=== PATIENT | male | born 1965 | race Caucasian/White ===

== ENCOUNTER 2020-08-06 23:23 | Emergency (ER) | payer SELFPAY ==
[~2020-08-06] VITALS: Ht 185.4 cm; Wt 62.6 kg
[2020-08-06 23:25] VITALS: BP 118/52
--- NOTE | 2020-08-06 23:46 | NUR ---
Patient given written and verbal discharge instructions. Patient verbalizes understanding of instructions. Patient is ambulatory with steady gait. Refuses offer of penitentiary placement. Patient given list of available shelters in surrounding area. pt was provided w. warm clothing, snacks and bus tap card.
== END 2020-08-06 23:46 | disposition home or self-care (01) ==
LOC: ER 23:25
DX: Z02.89 Encounter for other administrative examinations (principal); Z59.0 Homelessness

== ENCOUNTER 2020-08-08 08:54 | Emergency (ER) | payer SELFPAY ==
[~2020-08-08] VITALS: Ht 185.4 cm; Wt 64.0 kg
[2020-08-08] MEDS ORDERED: LORAZEPAM 1 MG TABLET ONE (09:25)
[2020-08-08] MEDS ORDERED: OLANZAPINE 5 MG TABLET ONE (09:26)
[2020-08-08] MEDS ORDERED: OLANZAPINE 5 MG TABLET PO ONE (09:30)
[2020-08-08] MEDS ORDERED: LORAZEPAM 1 MG TABLET PO ONE (09:30)
--- NOTE | 2020-08-08 10:00 | NUR ---
Patient came in to the er c/o being cold. On room air, breathing evenly and unlabored. Kept comfortable, will continue to monitor accordingly.
--- NOTE | 2020-08-08 10:07 | NUR ---
urine collected and sent to lab
[2020-08-08 10:12] LABS: BASOPHILS % (AUTO) 0.4 % (0.0-2.0); EOSINOPHILS % (AUTO) 0.5 % (0.0-6.0); HEMATOCRIT 37 % (39-51); HEMOGLOBIN 12.2 g/dL (13.5-17.5); LYMPHOCYTES # (AUTO) 0.8 /CMM (0.8-4.8); LYMPHOCYTES % (AUTO) 8.8 % (20.0-44.0); MEAN CORPUSCULAR HGB CONC 33 g/dl (31.0-36.0); MEAN CORPUSCULAR VOLUME 90 fL (80-96); MONOCYTES % (AUTO) 11.3 % (2.0-12.0); NEUTROPHILS # (AUTO) 7.3 /CMM (1.8-8.9); PLATELET COUNT (AUTO) 500 /CMM (150-450); WHITE BLOOD COUNT (AUTO) 9.2 K/uL (4.3-11.0)
[2020-08-08 10:21] LABS: BILIRUBIN,URINE NEGATIVE (NEGATIVE); COLOR,URINE YELLOW (YELLOW); LEUKOCYTE ESTERASE ,URINE NEGATIVE (NEGATIVE); NITRITE, URINE NEGATIVE (NEGATIVE); PROTEIN,URINE NEGATIVE (NEGATIVE); UGLUCOSE NEGATIVE (NEGATIVE); UROBILINOGEN,URINE >=8.0 EU/dL (0.2)
[2020-08-08 10:21] LABS: CALCIUM, SERUM 8.7 mg/dL (8.5-10.1); CARBON DIOXIDE 28 mmol/L (21-32); CHLORIDE 103 mmol/L (98-107); CREATININE 0.8 mg/dL (0.6-1.3); GLUCOSE 89 mg/dL (74-106); POTASSIUM 4.6 mmol/L (3.5-5.1); SODIUM SERUM 140 mmol/L (136-145); UREA NITROGEN, BLOOD 22 mg/dL (7-18)
[2020-08-08 10:28] LABS: ALANINE AMINOTRANSFERASE 39 U/L (12-78); ALBUMIN 2.4 g/dL (3.4-5.0); ALCOHOL, BLOOD < 3 mg/dL (0-0); ALKALINE PHOSPHATASE 109 U/L (46-116); ASPARTATE AMINOTRANSFERASE 35 U/L (15-37); BILIRUBIN,TOTAL 0.4 mg/dL (0.2-1.0); TOTAL PROTEIN, SERUM 7.1 g/dL (6.4-8.2)
[2020-08-08 10:29] LABS: ACETAMINOPHEN 0 ug/ml (10-30)
[2020-08-08 10:37] LABS: BILIRUBIN,DIRECT 0.1 mg/dL (0.0-0.2)
[2020-08-08 10:44] LABS: BACTERIA,URINE Rare /HPF (None Seen); RBC,URINE 0-3 /HPF (0-2); WBC,URINE 0-2 /HPF (0-3)
[2020-08-08 10:45] LABS: SQUAMOUS EPITHELIAL CELL,UR Few /HPF (None Seen)
--- NOTE | 2020-08-08 16:17 | NUR ---
Entry Level Account Executive consult: SW consult request by ER staff for a 55 year old homeless male. SW met with pt at ER bed 15 to assessment. SW is unable to interview due to pt is sleeping. Pt is noncompliant and did not wake up after multiple attempts to wake the pt. Per EMR mediation report , pt is medicated with Ativan (2mg) and Zyprexa (5mg). Pt toxicology is positive for (ETOH and salicylates). SOPHY spoke to RN (Silvestre) to contact social work specialist once the patient is ready to do an assessment. Plan: SW will follow up with the patient is agreeable to participate in interview and assessment
--- NOTE | 2020-08-08 19:48 | NUR ---
PT RESTING IN BED COMFORTABLY. VSS. PT PROVIDED WITH WATER.
--- NOTE | 2020-08-09 01:20 | NUR ---
PT PROVIDED WITH MORE BLANKETS, VSS.
--- NOTE | 2020-08-09 05:24 | NUR ---
PT PROVIDED WITH FOOD, VSS.
--- NOTE | 2020-08-09 07:41 | NUR ---
ASSESSED PT ON BED ASLEEP EASILY AROUSABLE, NOT IN RESPIRATORY DISTRESS, V/S STABLE, KEPT RESTED AND COMFORTABLE. WILL CONTINUE TO MONITOR.
--- NOTE | 2020-08-09 10:45 | NUR ---
SW AT BEDSIDE FOR EVAL.
--- NOTE | 2020-08-09 11:15 | NUR ---
SS consult: SS Consult requested for psychosis.The pt. is a 55 year old male experiencing homelessness. Per lab report, pt. tested positive for Amphetamine & was medicated with Zyprexa & Ativan due to Psych Hx. SOPHY met with pt. at bedside. Pt. appears disheveled, is malodorous & agitated. Pt. was non-cooperative with interview. Pt. able to make needs known. Pt. stated I only want a food tray. I dont want to speak to you. Pt. became increasingly agitated. SOPHY informed pt. SW to help with discharge planning. SW offered pt. homeless resources and pt. refused nursing home placement. Pt. refused to sign homeless waiver.
--- NOTE | 2020-08-09 11:55 | NUR ---
Patient given written and verbal discharge instructions. Patient verbalizes understanding of instructions. Patient is ambulatory with steady gait. Refuses offer of nursing home placement. Patient given list of available shelters in surrounding area.
[2020-08-09 11:56] VITALS: BP 120/73
== END 2020-08-09 11:57 | disposition home or self-care (01) ==
LOC: ER 08:56
DX: F29 Unspecified psychosis not due to a substance or known physiological condition (principal); R41.0 Disorientation, unspecified; F15.10 Other stimulant abuse, uncomplicated; Z59.0 Homelessness
CPT/HCPCS: 36415; 80048-TC; 80076-TC; 81001; 85025-TC; G0480

== ENCOUNTER 2020-08-24 10:16 | Emergency (ER) | payer SELFPAY ==
[~2020-08-24] VITALS: Ht 167.6 cm; Wt 59.4 kg
--- NOTE | 2020-08-24 10:20 | NUR ---
[address] for medical and psych eval. per report, pd was first on scene for possible placement. Patient a/ox4, breathing even and unlabored, no sob noted.
--- NOTE | 2020-08-24 10:45 | NUR ---
Initial Discharge Plan: SOPHY spoke to [facility] Field Based Outreach Contract Implementation Analyst, Avery Glover [[address]. [facility] [address]; [phone]]. Per Avery, he should be contacted when the pt. is medically cleared so he can place the pt. on recuperative care. Noted. SOPHY will inform charge nurse, Bradley.
--- NOTE | 2020-08-24 10:46 | NUR ---
REFUSED BLOOD DRAW AND TO PROVIDE URINE.
--- NOTE | 2020-08-24 10:48 | NUR ---
DR. GIFFORD MADE AWARE, OK TO HOLD HALDOL FOR NOW SINCE PATIENT IS COOPERATIVE AT THIS TIME.
--- NOTE | 2020-08-24 10:51 | NUR ---
PERFECT BIND MACHINE OPERATOR JUANY CALLED FOR CONSULT.
[2020-08-24] MEDS ORDERED: HALOPERIDOL LACTATE INJ 5 MG/ML VIAL IM ONE ×2 (11:00→16:30)
--- NOTE | 2020-08-24 11:40 | NUR ---
X RAY DEVELOPING MACHINE OPERATOR AT BEDSIDE FOR EVAL.
--- NOTE | 2020-08-24 12:02 | NUR ---
SOPHY attempted to assess this pt. at bedside. Yasmine pt. is not rousable to verbal cues. SW will attempt to assess at a later time. SOPHY informed MD chu pt. to be D/C to [facility] when medically cleared.
--- NOTE | 2020-08-24 12:04 | NUR ---
"Resources: SW placed the following homeless resources in pt.'s discharge packet in chart: Substance Abuse resources provided included: [facility] Substance Abuse Self-Helpline ([facility]) ; CRI -HELP [address] [facility] [place] [address] ; [facility] Treatment [place] [address] [facility] [address] ; [facility] [address] [facility] [id number] ; [facility] [address] [facility] [address] ; [facility] 9120 Chal[address] Alfar[address] [facility] [address] ; [facility] 909 [facility] [phone] ; [facility] Substance Abuse Helpline([facility])-[facility] ; [facility] ; [facility] [place]; [facility] [place]; Cri-Help [place]; I-ADARP Inter Agency Drug Abuse Recovery Chalino Alfaro; [facility]; [facility]; [facility] [place]; [facility] [place]; Alcoholics Anonymous -SFV; Az-Wuob-Atzofzr ; Marijuana Anonymous -SFV; Narcotics Anonymous www.na.org; Year-round shelters: [facility] [address] [place] [address] ; [facility] [address] [place] [address]; [facility] Nmolngy5609 [facility]. [facility] [address] Winter Shelters: Foreign Bran [place] Provider: [facility] [place] Address: [address], [address] # of Beds: 47 Population Served: [facility] 6 | [facility] Taina Reyes [place] Provider: Home at Last Address: [address], [address] # of Beds: 66 Population Served: [facility] [place] Provider: First to Serve Address: [address] [facility], [address] # of Beds: 56 Population Served: [place] Carloz [place] Provider: /[facility]. [facility] Address: [address] [facility], [address] # of Beds: 49 Population Served: [facility] 8 | [facility] Provider: First to Serve Address: 35[address] [facility], [address] # of Beds: 37 Population Served: [place] Hygiene: [place] [facility]: [address] [facility] ; [place] [facility] [address] [facility] ; [facility] 6900 [facility] . Food Resources: [place] [facility] at [facility]- 5700 [facility]; Meet Each Need with Dignity ([facility]) [address] [facility]; [facility] Food Pantry 4386 [facility]; [facility] [address] 5850 [facility]. Mental Health resources provided: [facility] [address] [place] [address] ; [facility] [address] [facility] [address], [place] [address] ; [facility] [address] [place] [address] ; [place] [address] Healthcare Clinics: [facility] [address] [facility], [address] [place]. [place] ; [facility] [address] [facility] [address] [place] [address]; [facility] [address] [place] [address] [phone]"
[2020-08-24 13:13] LABS: BASOPHILS # (AUTO) 0.1 /CMM (0.0-0.2); BASOPHILS % (AUTO) 0.8 % (0.0-2.0); EOSINOPHILS % (AUTO) 0.9 % (0.0-6.0); HEMATOCRIT 34 % (39-51); HEMOGLOBIN 11.2 g/dL (13.5-17.5); LYMPHOCYTES # (AUTO) 1.2 /CMM (0.8-4.8); LYMPHOCYTES % (AUTO) 14.5 % (20.0-44.0); MEAN CORPUSCULAR HGB CONC 33 g/dl (31.0-36.0); MEAN CORPUSCULAR VOLUME 88 fL (80-96); MONOCYTES # (AUTO) 0.9 /CMM (0.1-1.30); MONOCYTES % (AUTO) 11.3 % (2.0-12.0); NEUTROPHILS # (AUTO) 6.1 /CMM (1.8-8.9); NEUTROPHILS % (AUTO) 72.5 % (43.0-81.0); PLATELET COUNT (AUTO) 845 /CMM (150-450); RED BLOOD CELL COUNT(AUTO) 3.88 MIL/uL (4.5-6.0); WHITE BLOOD COUNT (AUTO) 8.4 K/uL (4.3-11.0)
[2020-08-24 13:28] LABS: CALCIUM, SERUM 8.6 mg/dL (8.5-10.1); CARBON DIOXIDE 30 mmol/L (21-32); CHLORIDE 104 mmol/L (98-107); CREATININE 0.9 mg/dL (0.6-1.3); GLUCOSE 88 mg/dL (74-106); POTASSIUM 3.4 mmol/L (3.5-5.1); SODIUM SERUM 142 mmol/L (136-145); UREA NITROGEN, BLOOD 27 mg/dL (7-18)
[2020-08-24 13:34] LABS: BILIRUBIN,URINE Negative (NEGATIVE); COLOR,URINE YELLOW (YELLOW); LEUKOCYTE ESTERASE ,URINE Moderate (NEGATIVE); NITRITE, URINE Positive (NEGATIVE); PROTEIN,URINE 100 mg/dl (NEGATIVE); UGLUCOSE Negative (NEGATIVE)
[2020-08-24 13:34] LABS: ACETAMINOPHEN 0 ug/ml (10-30); ALANINE AMINOTRANSFERASE 25 U/L (12-78); ALBUMIN 2.1 g/dL (3.4-5.0); ALCOHOL, BLOOD < 3 mg/dL (0-0); ALKALINE PHOSPHATASE 131 U/L (46-116); ASPARTATE AMINOTRANSFERASE 18 U/L (15-37); BILIRUBIN,TOTAL 0.2 mg/dL (0.2-1.0); TOTAL PROTEIN, SERUM 7.8 g/dL (6.4-8.2)
[2020-08-24 13:35] LABS: PH,URINE >9.0 (5.0-8.0)
[2020-08-24 13:38] LABS: WBC,URINE 21-50 /HPF (0-3)
[2020-08-24 13:39] LABS: BACTERIA,URINE 1+ /HPF (None Seen); HYALINE CASTS, URINE Few /LPF (None Seen); SQUAMOUS EPITHELIAL CELL,UR Rare /HPF (None Seen); URINE AMORPHOUS PHOSPHATES Moderate /HPF (None Seen)
--- NOTE | 2020-08-24 15:15 | NUR ---
SW attempted to interview pt. However, pt. verbally aggressive, agitated non-compliant with interview. SW will follow up at a later time.
--- NOTE | 2020-08-24 15:21 | NUR ---
BED BATH PROVIDED. REMOVED SOILED CLOTHING
[2020-08-24] MEDS ORDERED: CEFTRIAXONE 1 G VIAL IM ONE (15:30)
--- NOTE | 2020-08-24 15:50 | NUR ---
REAL ESTATE ADMINISTRATIVE ASSISTANT JUANY AT BEDSIDE.
[2020-08-24] MEDS ORDERED: LIDOCAINE /MPF 1% VIAL 5 ML VIAL ONE (16:14)
[2020-08-24] MEDS ORDERED: CEFTRIAXONE 1 G VIAL ONE (16:14)
--- NOTE | 2020-08-24 16:26 | NUR ---
"SS Consult: SS Consult requested for homelessness. SOPHY met with pt. bedside. Pt. calmer and more cooperative at this time. The pt. appears disheveled and is alert & oriented x3. The pt. does not make appropriate eye contact looking around. Pt. possibly responding to internal stimuli/ visual hallucinations. Pt. has hx. of Schizophrenia. The pt. stated he is homeless and could not provide timeframe. Pt. stated, People give me food. Pt. stated he resides on the street. The pt. denies SI/HI. Pt. denies receiving financial assistance & any drug or ETOH use. Pt. toxicology report is negative for any substances. SW offered pt. voluntary psychiatric placement for stabilization. Pt. refused. SOPHY called [facility] Outreach sorority supervisor, Avery Glover [phone] and advised regarding pt.s refusal for psychiatric care. Avery stated, if pt. can ambulate, he can be discharged to self and we will find him in the area & continue to provide homeless services. Noted. SOPHY informed MD. Pt. refused to sign homeless waiver & refused resources. SOPHY placed the following resources in pt.s chart: Substance Abuse resources provided included: [facility] Substance Abuse Self-Helpline ([facility]) ; CRI -HELP [address] [facility]. [place] [address] ; [facility] [address] [facility] [address] ; [facility] Rehabilitation Program [address] [facility] [address] ; [facility] [address] [facility] [address] ; [facility] Treatment [facility] 0617 [facility] [address] ; [facility] [address] [facility] [address] ; [facility] Substance Abuse Helpline([facility] ; [facility] ; [facility] [place]; [facility] [place]; Cri-Help [place]; I-ADARP Inter Agency Drug Abuse Recovery Chalino Alfaro; [place] [facility]; [facility] [place]; [facility] [place]; [facility], [facility]. [facility]; Alcoholics Anonymous -SFV; Fd-Goot-Ktaooyu ; Marijuana Anonymous -SFV; Narcotics Anonymous www.na.org; Year-round shelters: [facility] [place] [address] [place], [place] [id number] ; [place] [facility] [place] [address] [place] [address]; [facility] Ribwchn3820 [facility] [address] Winter Shelters: [facility] Provider: [facility] [place] Address: [address] [place], [address] # of Beds: 47 Population Served: [facility] 6 | [facility] Taina Reyes [place] Provider: Home at Last Address: [address], [address] # of Beds: 66 Population Served: [facility] [place] [employer] [place] Provider: First to Serve Address: [address] [facility], [address] # of Beds: 56 Population Served: [facility] Carloz [place] Provider: SSG/[facility]. [facility] Address: 8908 [facility], [address] # of Beds: 49 Population Served: [facility] 8 | [facility] Provider: First to Serve Address: 3535 [facility], [address] # of Beds: 37 Population Served: [facility] Hygiene: [place] [facility]: [address] Harlowtontheresa Solano [place] ; [place] [facility] [address] [facility] [place] ; [facility] [address], [place] . Food Resources: [place] Food Pant[facility] at [facility]- [address]00 [address] Christiane. [place]; Meet Each Need with Dignity ([facility]) [address] [facility] Hospital[facility]teo [place]; [facility] Food Pantry 43 [facility]; [facility] 3436 [facility]. Mental Health resources provided: [facility] [address] [place] [address] ; [facility] [address] [facility] [address], [place], [place] [id number] ; [facility] [address], [place] [id number] ; [facility] [address] [place], [place] [id number] Healthcare Clinics: [facility] 6551 [facility], [address] [place]. [place] ; [facility] 6801 [facility] [address] [place] [address]; [facility] Health [place] [address] [place] [address] [phone]"
--- NOTE | 2020-08-24 16:28 | NUR ---
Clothing: SW REQUESTED SECURITY TO BRING CLOTHING TO PT.
--- NOTE | 2020-08-24 16:30 | NUR ---
PATIENT A/OX4, AMBULATORY WITHS TEADY GAIT. Patient given written and verbal discharge instructions. Patient verbalizes understanding of instructions. Patient is ambulatory with steady gait. Refuses offer of alf placement. Patient given list of available shelters in surrounding area.
[2020-08-24 17:08] VITALS: BP 118/82
== END 2020-08-24 17:09 | disposition home or self-care (01) ==
LOC: ER 10:19
DX: F20.9 Schizophrenia, unspecified (principal); Z59.0 Homelessness; N39.0 Urinary tract infection, site not specified; Z20.822 Contact with and (suspected) exposure to COVID-19
CPT/HCPCS: 36415; 80048; 80076; 80299; 80307; 80320; 81001; 85025; 87077; 87086; 87186; 87426; 96372; 99284; C9803; J0696; J3490; G0480

== ENCOUNTER 2020-08-25 02:29 | Emergency (ER) | payer SELFPAY ==
[~2020-08-25] VITALS: Ht 167.6 cm; Wt 59.9 kg
[2020-08-25 02:33] VITALS: BP 138/67
--- NOTE | 2020-08-25 02:35 | NUR ---
PT VERBALLY ABUSIVE TO STAFF AND SECURITY. PT REFUSE HOMELESS REFERRAL. PT PROVIDED WITH FOOD BUT ALSO REFUSE THAT WELL. PT REMAINS VERBALLY ABUSIVE AND LEFT ER.
== END 2020-08-25 05:20 | disposition left against medical advice (07) ==
LOC: ER 02:32
DX: Z00.8 Encounter for other general examination (principal); Z59.0 Homelessness